=== PATIENT | female | born 1970 | race Caucasian/White ===

== ENCOUNTER 2017-03-06 21:47 | Emergency (ER) | payer BC ==
--- NOTE | ~2017-03-06 | CR172 ---
[facility] A Service of [facility] & [facility] RADIOLOGY TEXT RESULTS PATIENT: MIGUEL HAMM LOCATION: CFTX : 68 UNIT #: [id number] AGE: [address]: SALTY LONG APRN SEX: F ORDER DR: [id number] [facility] [address] [place], [place] [address] [id number] E MR#: [id number] #: [id number] NAME: MIGUEL HAMM : 1970 SEX: F STUDY DATE/TIME: 03/06/2017 23:33 UNIT: [facility] ROOM: STUDY DESCRIPTION: CR Knee 3 Views Lt Attending Physician: Salty Long Aprn Ordering Physician: Salty Long Aprn Primary Care Physician: No Primary Care Physician MEDICAL IMAGING REPORT This report is preliminary unless electronic signature is present EXAM Left knee, 03/06 at 23:33. INDICATIONS Generalized knee pain and soft tissue swelling today after a fall while jumping on the trampoline. FINDINGS Three views of the left knee were obtained. No fracture or malalignment is seen. There is no joint effusion. There is mild patellofemoral osteoarthritis. IMPRESSION Mild patellofemoral osteoarthritis, otherwise negative knee. Dictated by... Brian Hayes Jr., M.D. THIS IS AN ELECTRONICALLY VERIFIED REPORT Brian Hayes Jr., M.D. at 03/07/2017 9:15 PM FRANCESCO/maria c TD: 03/07/2017 14:13 JOB #: [id number] MEDICAL IMAGING REPORT Page 1 of 1 COPY
== END 2017-03-07 01:30 | disposition home or self-care (01) ==
LOC: CFTX 21:47 → CED 21:47 → CFTX 23:59
DX: S83.92XA Sprain of unspecified site of left knee, initial encounter (principal); F17.210 Nicotine dependence, cigarettes, uncomplicated; X58.XXXA Exposure to other specified factors, initial encounter; Y93.44 Activity, trampolining; Y92.830 Public park as the place of occurrence of the external cause; Y99.8 Other external cause status
CPT/HCPCS: 29505; 73562; 99283